=== PATIENT | male | born 1960 | race Caucasian/White ===

== ENCOUNTER 2017-05-11 08:05 | Day surgery (SDC) | payer BC ==
[~2017-05-11 08:05] MED LIST: Lactated Ringers 1,000 ML IV SCH; Sodium Chloride 0.9% 10 ML Syringe FLUSH PRN
[2017-05-11] MEDS ORDERED: Midazolam 1 MG/ML 2 ML SDV ONE ×2 (08:39→09:15)
[2017-05-11] MEDS ORDERED: Propofol 200 MG/20 ML SDV ONE ×2 (08:39→09:15)
[2017-05-11] MEDS ORDERED: fentaNYL 100 MCG/2 ML SDV ONE ×2 (08:39→09:15)
--- NOTE | 2017-05-11 09:20 | PCM.PN ---
- General Info Date of Service: 05/11/17 - Review of Systems Systems Review Comment:: 56-year-old male here for his initial screening colonoscopy. He is medically stable to proceed today with no significant change in his health status since his last exam. I have discussed the proposed colonoscopy with the patient. Risks such as but not limited to bleeding and GI injury reviewed. He appears to understand and agrees to proceed. - Patient Data Vitals - Most Recent: Last Vital Signs Temp 97.1 F 05/11/17 08:19 Pulse 70 05/11/17 08:19 Resp 20 05/11/17 08:19 BP 140/82 05/11/17 08:19 Pulse Ox 98 05/11/17 08:19 Weight - Most Recent: 95.254 kg Med Orders - Current: Current Medications Lactated Ringer's (Ringers, Lactated) 1,000 mls @ 125 mls/hr IV ASDIRECTED CARMELO Last Admin: 05/11/17 08:36 Dose: 125 mls/hr Sodium Chloride (Saline Flush) 10 ml FLUSH ASDIRECTED PRN PRN Reason: Keep Vein Open Discontinued Medications Fentanyl (Sublimaze) Confirm Administered Dose 100 mcg .ROUTE .STK-MED ONE Stop: 05/11/17 08:40 Midazolam HCl (Versed 1 Mg/Ml) Confirm Administered Dose 2 mg .ROUTE .STK-MED ONE Stop: 05/11/17 08:40 Propofol (Diprivan 20 Ml) Confirm Administered Dose 400 mg .ROUTE .STK-MED ONE Stop: 05/11/17 08:40 - Problem List Review Problem List Initiated/Reviewed/Updated: Yes - Assessment Assessment:: Colon cancer screening - Plan Plan:: Colonoscopy
--- NOTE | 2017-05-11 09:57 | PCM.OPNOTE ---
- General Post-Op/Procedure Note Date of Surgery/Procedure: 05/11/17 Operative Procedure(s): Colonoscopy with Polypectomy Findings: Multiple colon polyps Pre Op Diagnosis: Colon Cancer Screening Post-Op Diagnosis: Colon Polyps Anesthesia Technique: MAC Primary Surgeon: Baljit Retana Pathology: Colon Polyps Output, Urine Amount: 0 EBL in mLs: 0 Complications: None Condition: Good Free Text/Narrative:: Intake & Output 05/10/17 05/11/17 05/11/17 22:59 06:59 14:59 Intake Total 900 Balance 900
[2017-05-11 10:37] VITALS: BP 130/79
--- NOTE | 2017-05-11 12:07 | OR ---
Date of Procedure: 05/11/2017 PREOPERATIVE DIAGNOSIS: Colon cancer screening. POSTOPERATIVE DIAGNOSIS: Colon polyps. OPERATIONS PERFORMED: Colonoscopy with polypectomy. INDICATIONS FOR SURGERY: This 56-year-old male, presents for his initial screening colonoscopy. He denies any family history of colon cancer. FINDINGS: Multiple polyps were noted on today's exam. There is a 7 mm pedunculated polyp in the rectum, 2 cm from the anal verge. There was a cluster of 5 polyps ranging in size from 3 to 6 mm in the rectum at approximately the 10 cm level. There was a sessile 6 mm polyp in the sigmoid colon, 30 cm from the anal verge. The remainder of the colon appears normal. DESCRIPTION OF PROCEDURE: The patient was taken to the operating room. He was given intravenous sedation, and with him in the left lateral decubitus position, digital rectal exam was performed showing no rectal masses. The Olympus colonoscope was inserted into the rectum. The polyps in the rectal area are identified. The largest polyp near the anal verge was removed with a cautery snare and retrieved into a polyp trap. The other polyps further up in the rectum are removed or destroyed with cautery. The larger polyps being removed and retrieved into a polyp trap and the smaller polyps being destroyed with cautery. All visible polyps in this area were either destroyed or removed. The scope was then carefully advanced under direct visualization through the entire length of the colon until the cecum was reached. Cecal acquisition was confirmed by noting the normal internal cecal anatomy including the appendiceal orifice and ileocecal valve. The light was also noted to transilluminate the abdominal wall in the right lower quadrant. After examining the cecum, the scope was slowly withdrawn, sequentially re-examining the colonic segments until the entire colon, and the rectum had been fully examined. In the sigmoid colon region, the polyp there was identified and removed with a cautery snare and also retrieved during withdrawal of the scope. After the examination had been completed and with no sign of any complication, the scope was removed and the patient was taken from the operating room in satisfactory condition. ESTIMATED BLOOD LOSS: Zero. COMPLICATIONS: None. PROGNOSIS: Good. DIANA Retana MD /[id number]
== END 2017-05-11 10:56 | disposition home or self-care (01) ==
LOC: LL.SDS 08:05
PROVIDERS: ATTEND Surgery
DX: Z12.11 Encounter for screening for malignant neoplasm of colon (principal); D12.8 Benign neoplasm of rectum; K62.1 Rectal polyp; K63.5 Polyp of colon
CPT/HCPCS: 45385; J2250; J2704; J3010; J7120

== ENCOUNTER 2024-07-04 10:42 | Day surgery (SDC) | payer BC ==
[~2024-07-04 10:42] MED LIST changes: -Lactated Ringers 1,000 ML IV SCH; +Midazolam 1 MG/ML 2 ML SDV ONE; +Propofol 200 MG/20 ML SDV ONE; -Sodium Chloride 0.9% 10 ML Syringe FLUSH PRN
[2024-07-04] MEDS ORDERED: Sodium Chloride 0.9% 10 ML Syringe FLUSH PRN (10:45)
[2024-07-04] MEDS: Lactated Ringers 1,000 ML IV SCH (11:40)
[2024-07-04 13:03] VITALS: BP 117/71; PULSE 67
== END 2024-07-04 12:40 | disposition home or self-care (01) ==
LOC: LL.SDS 10:42
PROVIDERS: ATTEND Surgery
DX: Z12.11 Encounter for screening for malignant neoplasm of colon (principal); Z86.0100 Personal history of colon polyps, unspecified; I10 Essential (primary) hypertension; E11.9 Type 2 diabetes mellitus without complications; E78.2 Mixed hyperlipidemia; F17.210 Nicotine dependence, cigarettes, uncomplicated; Z79.84 Long term (current) use of oral hypoglycemic drugs; Z79.899 Other long term (current) drug therapy
CPT/HCPCS: 82947; J2250; J2704; J7120